=== PATIENT | female | born 1990 | race Caucasian/White ===

== ENCOUNTER 2020-04-29 18:06 | Emergency (ER) | payer SELFPAY ==
[2020-04-29 20:24] LABS: APPEARANCE,URINE CLEAR; BILIRUBIN,URINE NEGATIVE (NEGATIVE); COLOR,URINE STRAW; GLUCOSE, URINE NEGATIVE (NEGATIVE); KETONES,URINE NEGATIVE (NEGATIVE); LEUKOCYTE ESTERASE,URINE NEGATIVE (NEGATIVE); NITRITE,URINE NEGATIVE (NEGATIVE); PROTEIN,URINE NEGATIVE (NEGATIVE); URINE SPECIFIC GRAVITY 1.004; UROBILINOGEN,URINE NEGATIVE mg/dL (<2.0)
[2020-04-29 21:12] LABS: ABSOLUTE BASOPHILS # (AUTO) 0.1 10^3/uL (0.0-0.2); ABSOLUTE EOSINOPHILS # (AUTO) 0.2 10^3/uL (0.0-0.6); ABSOLUTE LYMPHOCYTES (AUTO) 4.4 10^3/uL (0.5-4.7); ABSOLUTE MONOCYTES (AUTO) 0.6 10^3/uL (0.1-1.4); ABSOLUTE NEUT (AUTO) 5.3 10^3/uL (1.7-8.2); BASOPHILS % (AUTO) 0.7 % (0-2); HEMATOCRIT 41.3 % (36.0-47.0); HEMOGLOBIN 15.3 g/dL (12.0-15.5); LYMPHOCYTES % (AUTO) 41.4 % (13-45); MEAN CORPUSCULAR HEMOGLOBIN 33.9 pg (27.0-33.4); MEAN CORPUSCULAR HGB CONC 36.9 g/dL (32.0-36.0); MEAN CORPUSCULAR VOLUME 92 fl (80-97); MONOCYTES % (AUTO) 5.8 % (3-13); PLATELET COUNT 281 10^3/uL (150-450); RED CELL DISTRIBUTION WIDTH 12.1 % (11.5-14.0); SEGMENTED NEUTROPHILS % (AUTO) 50.1 % (42-78); TOTAL CELLS COUNTED % (AUTO) 100 %; WHITE BLOOD COUNT 10.6 10^3/uL (4.0-10.5)
--- NOTE | 2020-04-29 21:17 | RADIOLOGY REPORT (SQ) ---
EXAM DESCRIPTION: U/S NON OB PEL TV W/DOPPLER 04/29/2020 7:52 PM DISPATCHER REFINERY CLINICAL HISTORY: 29 years Female, RLQ abd pain; hx of ovarian cysts; ; COMPARISON: Prior ultrasound dated 02/16/2013 FINDINGS: Uterus measures 7.4 x 3.5 x 5.1 cm in size. Endometrial stripe thickness is 2 mm, within normal limits for a premenopausal female. Cervix is closed, measuring 2.6 cm in length. A suspected nabothian cyst is evident about the periphery of the cervix measuring 0.6 x 0.4 x 0.5 cm in size. Right ovary measures 3.3 x 1.8 x 2.4 cm in size. It contains several normal-appearing follicles and demonstrates normal low resistance arterial waveforms/venous flow. In addition, it contains a simple cyst measuring 1.2 x 1.0 x 1.3 cm in size, a benign finding for which no additional follow-up is required. Left ovary measures 2.3 x 2.5 x 2.2 cm in size. It also demonstrates several normal-appearing follicles as well as normal low resistance arterial waveforms/venous flow. No free fluid. IMPRESSION: No acute sonographic abnormality.
[2020-04-29 21:25] LABS: ALBUMIN 4.1 g/dL (3.5-5.0); ALKALINE PHOSPHATASE 51 U/L (38-126); ANION GAP 5 (5-19); ASPARTATE AMINO TRANSFERASE 15 U/L (14-36); BILIRUBIN,DIRECT 0.2 mg/dL (0.0-0.4); BILIRUBIN,TOTAL 0.5 mg/dL (0.2-1.3); BLOOD UREA NITROGEN 6 mg/dL (7-20); CALCIUM 9.2 mg/dL (8.4-10.2); CARBON DIOXIDE 28 mmol/L (22-30); CHLORIDE 103 mmol/L (98-107); GLUCOSE 95 mg/dL (75-110); POTASSIUM 3.9 mmol/L (3.6-5.0); TOTAL PROTEIN 6.8 g/dL (6.3-8.2)
--- NOTE | 2020-04-29 23:33 | ER Document Report ---
ED Medical Screen (RME) - General Stated Complaint: ABDOMINAL PAIN Time Seen by Provider: 04/29/20 19:49 Notes: Patient is a 29-year-old female presents to the emergency department with a chief complaint of right lower quadrant abdominal pain. Patient has history of an appendectomy in the past. Patient also reports history of ovarian cysts in the past. Exam: Tender right lower abdomen. I have greeted and performed a rapid initial assessment of this patient. A comprehensive ED assessment and evaluation of the patient, analysis of test results and completion of medical decision making process will be conducted by an additional ED providers. Course - Laboratory Results Result Diagrams: 04/29/20 20:53 04/29/20 20:53 Laboratory Results Interpreted: 04/29/20 04/29/20 20:53 20:53 WBC 10.6 H MCH 33.9 H MCHC 36.9 H Sodium 136.0 L BUN 6 L
== END 2020-04-30 01:39 | disposition home or self-care (01) ==
LOC: ER 18:06
DX: R10.31 Right lower quadrant pain (principal); Z53.20 Procedure and treatment not carried out because of patient's decision for unspecified reasons
CPT/HCPCS: 36415; 76830; 80053; 81001; 81025; 83690; 85025; 93976; 99281